=== PATIENT | female | born 1960 | race African-American/Black ===

== ENCOUNTER 2016-05-12 23:07 | Emergency (ER) | payer MEDICARE ==
[2016-05-12 22:50] LABS: URINE SOURCE CLEAN CATCH
[2016-05-12 22:54] LABS: BASOPHIL% 0.4 % (0-2.5); EOSINOPHIL# 0.1 X10e3 (0-0.7); EOSINOPHIL% 0.8 % (0.0-7.0); HEMATOCRIT 37.8 % (35.0-45.0); HEMOGLOBIN 12.1 gm/dL (12.0-16.0); LYMPHOCYTE# 2.4 X10e3 (1.0-3.5); LYMPHOCYTE% 28.6 % (17.0-45.0); MEAN CELL VOLUME 72.6 FL (83-96); MEAN CORPUSCULAR HEMOGLOBIN 23.3 PG (28-34); MEAN CORPUSCULAR HGB CONC 32.1 g/dL (30-36); MEAN PLATELET VOLUME 9.9 FL (6.5-11.5); MONOCYTE# 0.8 X10e3 (0-1.0); MONOCYTE% 9.7 % (3.0-12.0); NEUTROPHIL% 60.5 % (40-75); PLATELET COUNT 102 X10e3 (140-420); RED CELL DISTRIBUTION WIDTH 16.2 % (11.0-15.5); WHITE BLOOD COUNT 8.2 X10e3 (4.0-10.5)
[2016-05-12 22:55] LABS: DIFF IND NO
[2016-05-12 22:56] LABS: URINE APPEARANCE CLEAR; URINE BILIRUBIN NEG (NEG); URINE BLOOD 2+ (NEG); URINE COLOR YELLOW; URINE GLUCOSE NEG (NEG); URINE KETONE NEG (NEG); URINE LEUKOCYTE ESTERASE TRACE (NEG); URINE NITRATE NEG (NEG); URINE PROTEIN NEG (NEG); URINE SPECIFIC GRAVITY 1.018 (1.003-1.035)
[2016-05-12 22:58] LABS: URINE BACTERIA AUWI NEG (NEGATIVE); URINE SQUAMOUS EPITHELIAL CELL OCC /[HPF]
[2016-05-12 22:59] LABS: CULTURE INDICATED? NO
[2016-05-12 23:07] LABS: AMPHETAMINE NEG (NEG); BARBITURATES NEG (NEG); BENZODIAZEPINES NEG (NEG); COCAINE NEG (NEG); MARIJUANA POS (NEG); OPIATES POS (NEG); TRICYCLIC ANTIDEPRESSANTS NEG (NEG); U METHADONE NEG (NEG)
[~2016-05-12 23:07] MED LIST: AUGMENTIN PO; BENADRYL PO; CENTRUM SILVER PO; CHRONULAC10 GM/15 M PO; CIPRO PO; COUMADIN3 MG PO; DOXYCYCLINE PO; FERROUS SU325 ( 65 ) PO; FISH OIL 1,0001 CAP PO; FLEXERIL10 MG PO; FLONASE 0.05% N16 G1; FLONASE16 GM; HYDROCHLOROTH12.5 MG PO; IBUPROFEN800 MG PO; LEVAQUIN PO; LORTAB 5/500 TA1 TA1 PO; MEDROL PO; MELOXICAM7.5 MG/5 M PO; MICROZIDE12.5 M1 PO; MOBIC15 MG PO; NAPROSYN500 MG PO; NAPROXEN PO; OMEPRAZOLE20 M2 PO; OMEPRAZOLE40 M1 PO; PYRIDIUM PO; SUDAFED PO; ULTRAM PO; UNKNOWN MEDS; XIFAXAN550 MG PO; ZITHROMAX1 G/PKT PO
[2016-05-12 23:16] LABS: ALKALINE PHOSPHATASE 83 U/L (32-92); ALT (SGPT) 27 U/L (10-40); AST (SGOT) 36 U/L (10-42); BILIRUBIN, DIRECT 0.2 mg/dL (0.0-0.2); BILIRUBIN,INDIRECT 0.5 mg/dL (0.0-0.9); BILIRUBIN,TOTAL 0.7 mg/dL (0.2-2.0); BLOOD UREA NITROGEN 19 mg/dL (9-23); BUN/CREATININE RATIO 21.11; CALCIUM SERUM 9.6 mg/dL (8.4-10.2); CARBON DIOXIDE 23 mmol/L (22-31); CHLORIDE 100 mmol/L (100-111); CREATININE SERUM 0.9 mg/dL (0.6-1.4); GLOM FILT RATE Estimated ABOVE60 mL/min (>60); GLUCOSE FASTING 123 mg/dL (70-110); POTASSIUM 4.1 mmol/L (3.5-5.1); PROTEIN TOTAL SERUM 8.8 g/dL (6.0-8.3); SODIUM 135 mmol/L (135-145)
== END 2016-05-12 23:44 | disposition home or self-care (01) ==
LOC: CFTX 23:07
PROVIDERS: Student in an Organized Health Care Education/Training Program
DX: M79.641 Pain in right hand (principal); G89.29 Other chronic pain; F12.10 Cannabis abuse, uncomplicated; F11.10 Opioid abuse, uncomplicated; J45.909 Unspecified asthma, uncomplicated; K21.9 Gastro-esophageal reflux disease without esophagitis; K74.60 Unspecified cirrhosis of liver; B19.20 Unspecified viral hepatitis C without hepatic coma; Z88.2 Allergy status to sulfonamides; Z88.1 Allergy status to other antibiotic agents; Z79.899 Other long term (current) drug therapy
CPT/HCPCS: 36415; 80048; 80076; 80307; 81003; 85025; 99283; 99284

== ENCOUNTER → 2016-06-06 | Outpatient (CLI) | payer MEDICARE ==
--- NOTE | ~2016-06-06 | US5 ---
[facility] A Service of [facility] RADIOLOGY TEXT RESULTS PATIENT: DORON FRANK LOCATION: [facility] : 60 UNIT #: [id number] AGE: [address]: Braden Gaffney MD SEX: F ORDER DR: [id number] [address] [address] [id number] O MR#: [id number] Acc #: [id number] NAME: DORON FRANK : 1960 SEX: F STUDY DATE/TIME: 06/06/2016 10:44 UNIT: [facility]US ROOM: STUDY DESCRIPTION: US Abdominal Complete Attending Physician: Braden Gaffney III, M.D. Referring Physician: Braden Gaffney III, M.D. Ordering Physician: Braden Gaffney III, M.D. Primary Care Physician: No Primary Care Physician MEDICAL IMAGING REPORT This report is preliminary unless electronic signature is present EXAM Abdominal ultrasound. DATE OF EXAM 06/06/2016 INDICATIONS Hepatitis C virus. Observation for cirrhosis. COMPARISON CT abdomen, 12/18/2015. FINDINGS The liver is morphologically cirrhotic. No hepatic mass is identified. The intrahepatic bile ducts are normal in caliber. The common duct is normal in size measuring 4 mm in the rohit hepatis. The gallbladder is surgically absent. The right kidney measures 10.5 cm. The left kidney measures 9 cm. Renal cortical thickness and echogenicity is normal. There are nonobstructing bilateral renal calculi. No hydronephrosis. The spleen measures 11.5 cm. Juxtahepatic IVC and the abdominal aorta within normal limits. No ascites. IMPRESSION 1. Cirrhosis of the liver. 2. Nephrolithiasis. Dictated by... César Sesay M.D. [facility] A Service of [facility] RADIOLOGY TEXT RESULTS PATIENT: DORON FRANK LOCATION: [facility] : 60 UNIT #: [id number] AGE: [address]: Braden Gaffney MD SEX: F ORDER DR: THIS IS AN ELECTRONICALLY VERIFIED REPORT César Sesay M.D. at 06/07/2016 7:55 AM YESSENIA/juan TD: 06/06/2016 23:10 JOB #: [id number] MEDICAL IMAGING REPORT Page 1 of 1 COPY
== END | disposition home or self-care (01) ==
LOC: CGUS 09:50
DX: B18.2 Chronic viral hepatitis C (principal); K74.60 Unspecified cirrhosis of liver; N20.0 Calculus of kidney
CPT/HCPCS: 76700